=== PATIENT | male | born 1980 | race Caucasian/White ===

== ENCOUNTER → 2017-10-09 | Outpatient (CLI) | payer OTHER ==
[~2017-10-09] MED LIST: BUPR1SUB SL
== END | disposition home or self-care (01) ==
LOC: C.PATHSPEC 14:51
PROVIDERS: ATTEND Urology
DX: R31.0 Gross hematuria (principal)

== ENCOUNTER → 2017-11-06 | Outpatient (CLI) | payer OTHER ==
[2017-11-06 16:29] LABS: ALBUMIN 4.4 gm/dl (3.4-5.0); ALKALINE PHOSPHATASE 54 U/L (45-117); ALT/SGPT 34 U/L (12-78); AST/SGOT 16 U/L (15-37); BLOOD UREA NITROGEN 14 mg/dl (7-18); CALCIUM 9.2 mg/dl (8.5-10.1); CARBON DIOXIDE 30 mmol/L (21-32); CREATININE 0.96 mg/dl (0.60-1.40); GLUCOSE 89 mg/dl (70-99); POTASSIUM 4.1 mmol/L (3.5-5.1); SODIUM 138 mmol/L (136-145); TOTAL PROTEIN 7.9 gm/dl (6.4-8.2)
== END | disposition home or self-care (01) ==
LOC: C.LAB 15:01
PROVIDERS: ATTEND Urology
DX: R31.0 Gross hematuria (principal)

== ENCOUNTER → 2017-11-11 | Outpatient (CLI) | payer OTHER ==
[~2017-11-11] MED LIST changes: +OPTIRAY 320 IV PRN
--- NOTE | 2017-11-11 13:16 | DIAGNOSTIC IMAGING REPORT ---
ABD/PELVIS COMBO WITH ORAL CLINICAL HISTORY: 37 years-old Male presenting with GROSS HEMATURIA. TECHNIQUE: Multidetector CT of the abdomen and pelvis was performed before and after the administration of intravenous contrast. IV contrast: 119 mL of Optiray 320. A dose lowering technique was used consistent with the principles of ALARA (as low as reasonably achievable). COMPARISON: 08/24/2007. CT DOSE (mGy.cm): The estimated cumulative dose is 1724.87. FINDINGS: Environment Coordinator topogram: Unremarkable. Lung bases: Lungs and pleural spaces clear. Normal heart size. No pericardial or pleural effusion. Liver: Normal morphology. No liver lesion. Patent hepatic vasculature. Biliary: No intrahepatic or extrahepatic biliary ductal dilatation. Normal gallbladder. Pancreas: Normal. Spleen: Normal. Adrenal glands: Normal. Kidneys and ureters: Questionable punctate nonobstructing calculus at the upper pole the left kidney (series 3 image 115). No other evidence of possible calculus. Subcentimeter well-defined hypodensity in the right kidney likely simple cyst. Renal parenchyma otherwise normal. No filling defect within the urinary collecting system to suggest a urothelial mass. The ureters are normal in caliber. No ureteral calculi or abnormal wall thickening. Bladder: The bladder may be mildly circumferentially thick-walled.. Pelvic organs: Prostate and seminal vesicles normal. Bowel: Few diverticula noted at the junction of the descending and sigmoid colon. No pericolonic fat infiltration. The appendix is normal. No bowel obstruction. Peritoneal cavity: No free fluid or intraperitoneal gas. Lymph nodes: No enlarged lymph nodes in the abdomen or pelvis. Vasculature: Aorta and IVC patent and normal in caliber. Abdominal wall: Small fat-containing umbilical hernia. Musculoskeletal: Normal. IMPRESSION: 1. No solid renal or urothelial neoplasm. Questionable punctate nonobstructing left renal calculus. No hydronephrosis. 2. Possible mild circumferential bladder wall thickening. This could suggest cystitis. Correlate with urinalysis. Electronically signed by: Chon Espinal M.D. 11/11/2017 1:15 PM Dictated Date/Time: 11/11/2017 1:08 PM
== END | disposition home or self-care (01) ==
LOC: C.CTS 12:10
PROVIDERS: ATTEND Urology
DX: R31.0 Gross hematuria (principal)

== ENCOUNTER 2017-11-30 05:18 | Day surgery (SDC) | payer OTHER ==
[2017-11-19 09:05] VITALS: Ht 182.9 cm; Wt 88.6 kg
[~2017-11-30] VITALS: Ht 182.9 cm; Wt 88.6 kg
[~2017-11-30 05:18] MED LIST changes: -BUPR1SUB SL; +CODCAP4 PO; -OPTIRAY 320 IV PRN
[2017-11-30 05:36] VITALS: BP 153/87; PULSE 55; TEMP 36.9; O2SAT 98
[2017-11-30] MEDS ORDERED: CIPROFLOXACIN / D5W 400 MG IV SCH (06:00)
[2017-11-30] MEDS ORDERED: LACTATED RINGER'S 1000ML 1,000 ML IV SCH (06:00)
--- NOTE | 2017-11-30 07:02 | History & Physical Bridge Note ---
H&P Re-Evaluation Bridge Note: I have examined the patient, reviewed the History & Physical and in the interval since the performance of the History & Physical I have noted the following changes of clinical significance: No changes noted
[2017-11-30] MEDS ORDERED: LIDOCAINE HCL 2% 2 ML VIAL (20MG/ML) ONE (07:03)
[2017-11-30] MEDS ORDERED: DEXAMETHASONE SOD INJ 4 MG/ML VIAL ONE (07:03)
[2017-11-30] MEDS ORDERED: MIDAZOLAM HCL 1 MG/ML 2ML VIAL ONE (07:03)
[2017-11-30] MEDS ORDERED: PROPOFOL IV EMULSION 10 MG/ML 20 ML VIAL ONE (07:03)
[2017-11-30] MEDS ORDERED: KETOROLAC TROMETHAMINE 30 MG/ML VIAL ONE (07:03)
[2017-11-30] MEDS ORDERED: ONDANSETRON INJ 2 MG/ML 2 ML VIAL ONE (07:03)
[2017-11-30] MEDS ORDERED: FENTANYL CITRATE INJ 50 MCG/1 ML 2 ML VIAL ONE (07:04)
[2017-11-30] MEDS ORDERED: BUPIVACAINE 0.5 % 5 MG/1 ML MPF 30ML VIAL ONE (07:11)
[2017-11-30] MEDS ORDERED: SULF800T23 PO (07:13)
[2017-11-30] MEDS ORDERED: PHEN-775 PO (07:13)
[2017-11-30] MEDS ORDERED: OXYC7.5T65 PO (07:13)
--- NOTE | 2017-11-30 07:16 | Discharge Instructions ---
Discharge Instructions Date of Service November 30, 2017. Admission Reason for Admission: Hematuria, Voluntary Sterilization Discharge Discharge Diagnosis / Problem: Hematuria, Desired Sterility Discharge Goals Goal(s): Decrease discomfort, Improve function Activity Recommendations Activity Limitations: resume your previous activity Lifting Limitations: gradually increase as tolerated Exercise/Sports Limitations: gradually increase as tolerated Shower/Bathe: tomorrow Driving or Machine Use: resume 1 day after discharge . Instructions / Follow-Up Instructions / Follow-Up May have blood in urine or discomfort. May have pain in groin or pelvis. No heavy lifting. Ice 20 mins on and 20 mins off for next 3-4 days. Okay to continue over next 2 weeks. Call if any issues. See Post Vasectomy sheet given at office visit Current Hospital Diet Patient's current hospital diet: Discharge Diet Recommended Diet: Regular Diet Procedures Procedures Performed: Cystoscopy, Bilateral Vasectomy Pending Studies Studies pending at discharge: no Medical Emergencies . Who to Call and When: Medical Emergencies: If at any time you feel your situation is an emergency, please call 911 immediately. . Non-Emergent Contact Non-Emergency issues call your: Primary Care Provider, Urologist Call Non-Emergent contact if: you have a fever, temperature is above 101, temperature is above 101.5, your pain is not controlled, your pain is worsening , your pain is unusual for you, wound has increased drainage, wound has increased redness, wound has increased pain . . "Provider Documentation" section prepared by Trevor Vigil. .
[2017-11-30] MEDS ORDERED: ONDANSETRON INJ 2 MG/ML 2 ML VIAL IV PRN (07:30)
[2017-11-30] MEDS ORDERED: FENTANYL CITRATE INJ 50 MCG/1 ML 2 ML VIAL IV PRN (07:30)
[2017-11-30] MEDS ORDERED: ATROPINE SULFATE 0.1 MG/ML 5ML SYR IV PRN (07:30)
[2017-11-30] MEDS ORDERED: OXYCODONE/ACETAMINOPHEN 7.5-325 TAB PO PRN (07:30)
[2017-11-30] MEDS ORDERED: EpHEDrine SULFATE INJ 50 MG/ML AMP IV PRN (07:30)
--- NOTE | 2017-11-30 08:25 | [facility] Operative Report ---
Operative Report Operative Date November 30, 2017. Pre-Operative Diagnosis Hematuria, Desired Sterility Post-Operative Diagnosis Same Procedure(s) Performed Cystoscopy, Bilateral Vasectomy Surgeon Musa Estimated Blood Loss Minimal Findings Bilateral palpable vas. No bladder lesions Specimens Bilateral Vas segments. Drains None Anesthesia Type MAC Complication(s) none Disposition Recovery Room / PACU Indications Desired sterility with stable relationship and children. Also intermittent hematuria. Risks and benefits discussed. Description of Procedure Patient was consented and brought back to the operating room. Patient was placed under anesthesia in the supine position. Patient was prepped and draped in the regular sterile fashion. A time out was completed. The vas was palpated bilaterally. The cord was injected with anesthetic as well as the skin. Sharp hemostats were used to open the skin and dissect through subcutaneous and dartos tissues. The cord was isolated and grasped. The sheath was opened with a scalpel and the vas isolated. Hemostats were placed and a 1cm segment was removed after bisecting the vas with a scalpel. Each end was cauterized at the lumen. The vas segments were ligated. The proximal and distal ends were interposed between the fascial layers and closed with a 3-0 chromic. The area was assessed. No areas of bleeding were noted. The procedure was repeated for the right side vas cord with an approx 1 cm segment also removed. No bleeding or other areas of concern. The dartos and skin was closed with a 3-0 chromic. Glue was placed over the incision. A Flexible Cystoscope was placed into the bladder and the entire bladder was examined. The UO's were identified. No masses, lesions, or other areas of concern were noted. The scope was retroflexed and the bladder neck was also clear of lesions. The scope was removed and the bladder emptied. The patient was cleaned, aroused from anesthesia, and transferred to the pacu in stable condition having tolerated the procedure well with no complications. I was present and participated in all aspects of the procedure. The patient will be monitored in the PACU until transferred. I attest to the content of the Intraoperative Record and any orders documented therein. Any exceptions are noted below.
[2017-11-30 09:20] VITALS: BP 143/81; PULSE 65; TEMP 36.5; O2SAT 98
--- NOTE | 2017-11-30 09:35 | Anesthesiology Progress Note ---
Anesthesia Post Op Note Date & Time November 30, 2017 at 09:35 Vital Signs Pain Intensity: 0 Vital Signs Past 12 Hours Date Time Temp Pulse Resp B/P (MAP) Pulse Ox O2 Delivery O2 Flow Rate FiO2 11/30/17 09:11 127/87 11/30/17 09:08 54 16 98 11/30/17 09:08 54 16 11/30/17 09:07 130/80 11/30/17 09:03 58 17 11/30/17 09:03 58 17 97 11/30/17 09:01 115/74 11/30/17 08:58 59 14 98 11/30/17 08:58 59 14 11/30/17 08:57 36.9 65 16 131/87 (93) 98 Room Air Oxymask 11/30/17 08:56 131/87 11/30/17 08:53 58 13 100 11/30/17 08:53 60 13 11/30/17 08:52 133/85 11/30/17 08:51 79 13 100 11/30/17 08:51 77 13 11/30/17 08:46 72 12 11/30/17 08:46 75 12 137/76 99 11/30/17 08:41 66 15 137/85 100 11/30/17 08:41 67 15 11/30/17 08:37 139/87 11/30/17 08:36 71 11 11/30/17 08:36 72 11 100 11/30/17 08:36 36.3 67 14 139/87 (97) 100 Oxymask 10 11/30/17 05:36 36.9 55 20 153/87 (109) 98 Room Air Notes Mental Status: alert / awake / arousable, participated in evaluation Pt Amnestic to Procedure: Yes Nausea / Vomiting: adequately controlled Pain: adequately controlled Airway Patency, RR, SpO2: stable & adequate BP & HR: stable & adequate Hydration State: stable & adequate Anesthetic Complications: no major complications apparent
[2017-11-30 09:52] VITALS: BP 148/72; PULSE 72; O2SAT 100
[2017-11-30 10:15] VITALS: BP 140/79; PULSE 79; TEMP 36.5; O2SAT 98
== END 2017-11-30 10:30 | disposition home or self-care (01) ==
LOC: C.ACU 05:18
PROVIDERS: ATTEND Urology
DX: Z30.2 Encounter for sterilization (principal); R31.0 Gross hematuria; I25.2 Old myocardial infarction; Z82.49 Family history of ischemic heart disease and other diseases of the circulatory system; Z83.3 Family history of diabetes mellitus